=== PATIENT | female | born 1995 | race Caucasian/White ===

== ENCOUNTER 2021-03-08 18:24 | Emergency (ER) | payer OTHER, SELFPAY ==
[2021-03-08 18:39] VITALS: BP 105/64; PULSE 64; RESP 16; TEMP 36.6; O2SAT 100
--- NOTE | 2021-03-08 18:43 | ED.ANIMALBIT ---
HPI - Animal Bite General Chief Complaint: Animal Bite Stated Complaint: Bit by a cat Time Seen by Provider: 03/08/21 18:44 Source: patient History of Present Illness HPI narrative: left inner knee bit by cat at work. puncture wound and bruising to left inner knee . slight edemetous, no drainage no streaking. incident occurred early this am. patient flushed bite at work and is up to date on tdap patient is 16 weeks but has no related problems. MD complaint: animal bite Related Data Home Medications Medication Instructions Recorded Confirmed citalopram 20 mg PO DAILY 03/08/21 03/08/21 citalopram 40 mg PO DAILY 03/08/21 03/08/21 levothyroxine 25 mcg PO DAILY 03/08/21 03/08/21 Allergies Allergy/AdvReac Type Severity Reaction Status Date / Time No Known Allergies Allergy Unverified 11/24/14 14:53 Review of Systems Review of Systems: CONSTITUTIONAL: Denies fever, chills, or sweats. EYES: Denies visual changes, redness, or discharge. ENT: Denies rhinorrhea, congestion, sore throat, or otalgia. CARDIOVASCULAR: Denies chest pain, palpitations, or edema. RESPIRATORY: Denies cough or dyspnea. GASTROINTESTINAL: Denies abdominal pain, nausea, vomiting, or diarrhea. GENITOURINARY: Denies dysuria or hematuria. SKIN: Denies rash or itching. MUSCULOSKELETAL: Denies back pain, joint pain, or myalgia. NEUROLOGIC: Denies headache, numbness, or weakness. PSYCHIATRIC: Denies anxiety or depression. PMFSH Comments At time of signature, agree with nursing past medical, surgical, social and family history. There is no relevant family history pertinent to the presenting complaint Exam Narrative: GENERAL: Well-appearing, well-nourished, and in no acute distress. HEAD: Normocephalic, atraumatic. EYES: PERRLA and EOMI. ENT: Nares clear, no rhinorrhea or epistaxis. Mucous membranes moist. NECK: Supple. CHEST: Clear to auscultation. No respiratory distress. HEART: Regular rate and rhythm. No murmur heard. Normal peripheral pulses. ABDOMEN: Soft, nontender, nondistended, normal active bowel sounds. EXTREMITIES: Normal range of motion. No edema. SKIN: Warm, dry, no rash. NEURO: No focal deficits. Alert and oriented x3. [place] Coma Scale Eye Opening: Spontaneous 4 [place] Coma Scale Motor: Obeys Commands 6 [place] Coma Scale Verbal: Oriented 5 [place] Coma Scale Total 15 Skin: Wounds: wounds noted (puncture wound to left inner knee) Course Vital Signs Vital signs: Vital Signs Temperature 36.6 C 03/08/21 18:39 Pulse Rate 64 03/08/21 18:39 Respiratory Rate 16 03/08/21 18:39 Blood Pressure 105/64 03/08/21 18:39 Pulse Oximetry 100 03/08/21 18:39 Temperature 36.6 C 03/08/21 18:39 Pulse Rate 64 03/08/21 18:39 Respiratory Rate 16 03/08/21 18:39 Blood Pressure 105/64 03/08/21 18:39 Pulse Oximetry 100 03/08/21 18:39 Discharge Plan Discharge Clinical Impression: Bite by animal, Cat bite Patient Disposition: Home, Self-Care Condition: Stable Instructions: Antibiotic Form, Animal Bite (ED) Additional Instructions: Take Augmentin with food as prescribed until gone Wash puncture wounds daily with antibacterial soap warm soapy water and apply bacitracin or Neosporin Monitor for any increased in redness streaking's or purulent drainage Follow-up with primary care provider as needed If any new or worsening symptoms go to ER immediately for further evaluation treatment Prescriptions: No Action citalopram 20 mg tablet 20 mg PO DAILY RF: 0 citalopram 40 mg tablet 40 mg PO DAILY RF: 0 levothyroxine 25 mcg tablet 25 mcg PO DAILY RF: 0 Follow-up/Referrals: Maksim,RADHA Narvaez [Primary Care Provider] -
== END 2021-03-08 18:56 | disposition home or self-care (01) ==
PROVIDERS: Emergency Provider Nurse Practitioner Family; PCP Nurse Practitioner Family
DX: S81.032A Puncture wound without foreign body, left knee, initial encounter (principal); W55.01XA Bitten by cat, initial encounter
CPT/HCPCS: 99202; G0463

== ENCOUNTER 2021-03-10 08:04 | Emergency (ER) | payer OTHER, SELFPAY ==
[2021-03-10 08:15] VITALS: BP 115/65; PULSE 63; RESP 16; TEMP 36.6; O2SAT 100
--- NOTE | 2021-03-10 08:23 | ED.ANIMALBIT ---
HPI - Animal Bite General Chief Complaint: Animal Bite Stated Complaint: Cat Bite Time Seen by Provider: 03/10/21 08:42 Source: patient and RN notes reviewed Mode of arrival: ambulatory Limitations: no limitations History of Present Illness HPI narrative: 25-year-old female presents with concern for cat bite that is not improving with antibiotics. Reports she was seen in this clinic on the , was given a prescription for amoxicillin. She reports she has taken 4 doses of the amoxicillin with no improvement, reports the redness is getting larger. She reports the amoxicillin has given her diarrhea and made her nauseous. Reports she has been taking it with food and had a yogurt. She denies any fever, body aches, general malaise. Reports the wound is tender. Denies drainage from the wound. MD complaint: animal bite Related Data Home Medications Medication Instructions Recorded Confirmed citalopram 20 mg PO DAILY 03/08/21 03/10/21 citalopram 40 mg PO DAILY 03/08/21 03/10/21 levothyroxine 25 mcg PO DAILY 03/08/21 03/10/21 Allergies Allergy/AdvReac Type Severity Reaction Status Date / Time No Known Allergies Allergy Unverified 11/24/14 14:53 Review of Systems Review of Systems: CONSTITUTIONAL: Denies malaise, chills, sweats, or fever. CARDIOVASCULAR: Denies chest pain, palpitations, or edema. RESPIRATORY: Denies cough or dyspnea. GASTROINTESTINAL: Denies abdominal pain, vomiting. Reports diarrhea nausea SKIN: Denies rash or itching. MUSCULOSKELETAL: Denies back pain, joint pain, or myalgia. NEUROLOGIC: Denies numbness, weakness, or headache. PSYCHIATRIC: Denies anxiety or depression. All systems reviewed & are unremarkable except as noted in HPI and below PMFSH Comments At time of signature, agree with nursing past medical, surgical, social and family history. There is no relevant family history pertinent to the presenting complaint Exam Narrative: GENERAL: Well-appearing, well-nourished, and in no acute distress. HEAD: Normocephalic, atraumatic. EYES: PERRLA, conjunctivae clear ENT: Mucous membranes moist. NECK: Supple. No lymphadenopathy CHEST: Clear to auscultation. No respiratory distress. HEART: Regular rate and rhythm. SKIN: Warm, dry. 8 cm diameter raised area of erythema, induration, warmth with scabbed puncture wounds. NEURO: Alert and oriented x3. PSYCH: Normal mood and affect Course Course Emergency Course: Patient is aware of diagnosis, understands and agrees to treatment plan. Anticipatory guidance given. Patient agrees to follow-up as directed and is aware of reasons to seek care at the emergency department. Portions of this record may have been created with voice recognition software Vital Signs Vital signs: Vital Signs Temperature 97.8 F 03/10/21 08:15 Pulse Rate 63 03/10/21 08:15 Respiratory Rate 16 03/10/21 08:15 Blood Pressure 115/65 03/10/21 08:15 Pulse Oximetry 100 03/10/21 08:15 Temperature 97.8 F 03/10/21 08:15 Pulse Rate 63 03/10/21 08:15 Respiratory Rate 16 03/10/21 08:15 Blood Pressure 115/65 03/10/21 08:15 Pulse Oximetry 100 03/10/21 08:15 Reviewed. MDM - Animal Bite MDM Narrative Medical decision making narrative: Patient arvin to the original redness of the wound, redness has spread outside the original markings. Exam findings show no acute concerns or changes; patient is non-toxic appearing and is in no distress. Patient is appropriate for outpatient treatment and follow-up. Differential Diagnosis Differential diagnosis: Likely cat bite and other (Cellulitis, abscess) Critical Care Time Critical Care Time Critical Care Time: No Discharge Plan Discharge Clinical Impression: Cat bite Qualifiers: Encounter type: initial encounter Qualified Code(s): W55.01XA - Bitten by cat, initial encounter Patient Disposition: Home, Self-Care Condition: Stable Instructions: Animal Bite (ED) Additional Instructions: Please fol
== END 2021-03-10 08:47 | disposition home or self-care (01) ==
PROVIDERS: Emergency Provider Nurse Practitioner; PCP Nurse Practitioner Family
DX: T14.8XXA Other injury of unspecified body region, initial encounter (principal); W55.01XA Bitten by cat, initial encounter
CPT/HCPCS: 99213; G0463

== ENCOUNTER 2021-07-01 19:25 | Observation (INO) | payer OTHER, MEDICAID, SELFPAY ==
[2021-07-01] VITALS (15 sets, daily range): BP systolic 112–116; BP diastolic 61–69; PULSE 63–96; TEMP 36.5; O2SAT 99–100; BMI 37.2
--- NOTE | 2021-07-01 19:47 | OBADM ---
This patient, Lynne Skelton, admitted to the OB room OB Post 116 for observation. Patient/family oriented to hospital policies and general routines including ID bracelet, bed and alarms, visiting hours, pain management, procedures, bathroom and other care routines, personal items, smoking policy, room service/diet, and visiting hours. Patient/Family are encouraged to report perceived risks to care and to ask questions if they do not understand what they are told or what they should do.
[2021-07-01 20:21] LABS: Add Urine Microscopic? NO; Appearance Urine Clear (Clear); Bilirubin Urine Negative (Negative); Blood Urine Negative (Negative); Color Urine Yellow (Yellow); Glucose Urine UA Negative (Negative); Ketones Urine Negative (Negative); Leukocyte Esterase Ur Negative LEU/UL (Negative); Nitrate Urine Negative (Negative); Protein Urine Negative (Negative); Specific Grav Ur 1.021 (1.001-1.035); Urobilinogen Urine Negative mg/dL (<2.0)
[2021-07-01] MEDS: TERBUTALINE SULFATE 1 MG/ML VIAL 0.25 MG SUB-Q (21:31)
--- NOTE | 2021-07-26 22:18 | PM.OBTRLD ---
OB - Triage/Final Diagnosis Visit Information Comments/Additional reasons for admission: I have assessed the risk for this patient, Lynne Skelton, and determined that she would benefit from observation care. Evaluation Laboratory results: Laboratory Tests 07/01/21 20:05 Urine Color Yellow Urine Appearance Clear Urine pH 7.0 Ur Specific [place] 1.021 Urine Protein Negative Urine Glucose (UA) Negative Urine Ketones Negative Ur Blood (Man) Negative Urine Nitrate Negative Urine Bilirubin Negative Urine Urobilinogen Negative Leukocyte Esterase Rfl Negative Final Diagnosis (1) Pelvic pain: Code(s): R10.2 - Pelvic and perineal pain Status: Acute
== END 2021-07-01 22:26 | disposition home or self-care (01) ==
PROVIDERS: Admitting Provider Obstetrics & Gynecology; PCP Nurse Practitioner Family; Visit Provider Obstetrics & Gynecology
DX: O26.893 Other specified pregnancy related conditions, third trimester (principal); R10.2 Pelvic and perineal pain; Z3A.32 32 weeks gestation of pregnancy
CPT/HCPCS: 81003; 96372; G0378; G0379; J3105

== ENCOUNTER 2021-07-23 22:21 | Inpatient (IN) | payer OTHER, MEDICAID, SELFPAY ==
[2021-07-23 22:33] VITALS: BP 139/76; PULSE 83
[2021-07-23 22:46] VITALS: BP 129/78; PULSE 82
[2021-07-23 23:01] VITALS: BP 130/78; PULSE 78
[2021-07-23] MEDS: AMPICILLIN 2 GM/NS 100 ML 2 GM/100 ML BAG IVPB (23:01)
[2021-07-23] MEDS: BETAMETHASONE SOD PHOS/ACETATE 30 MG/5 ML VIAL 12 MG IM (23:01)
[2021-07-23] MEDS: LACTATED RINGERS 1,000 ML 125 ML IV CONT (23:02)
[2021-07-23 23:04] LABS: Basophils Percent Auto 0.2 % (0.2-1.2); Eosinophils Absolute Auto 0.2 K/mm3 (0-0.3); Eosinophils Percent Auto 1.2 % (0-4.4); Hematocrit 33.4 % (37.0-47.0); Hemoglobin 11.4 g/dL (12.0-15.0); Immature Granulocyte Absolute 0.11 K/mm3 (0.00-0.031); Immature Granulocyte Percent A 0.8 % (0-0.5); Lymphocytes Absolute Auto 2.28 K/mm3 (0.9-3.2); Lymphocytes Percent Auto 16.1 % (18.3-44.2); Mean Corpuscular HGB Conc 34.1 g/dl (32-36); Mean Corpuscular Hemoglobin 33.6 pg (26-34); Mean Corpuscular Volume 98.5 fl (80-100); Mean Platelet Volume 10.2 fl (7.4-10.4); Monocytes Percent Auto 7.1 % (2.6-8.5); Neutrophils Absolute Auto 10.6 K/mm3 (1.3-6.7); Neutrophils Percent Auto 74.6 % (45.5-73.1); Platelet Count Result 259 k/mm3 (150-375); Red Blood Count 3.39 M/mm3 (4.2-5.4); Red Cell Distribution Width 12.8 % (11.5-14.5); White Blood Count 14.2 K/mm3 (4.5-10.0)
[2021-07-23 23:05] VITALS: BMI 38.2
--- NOTE | 2021-07-23 23:05 | LDADM ---
This patient, Lynne Skelton, was admitted to Labor/Delivery/Recovery 104 on 07/23/21 at 22:21. Plans for labor, pain management and were discussed with patient. Patient/family oriented to hospital policies and general routines including ID bracelet, bed and alarms, visiting hours, pain management, procedures, bathroom and other care routines, personal items, smoking policy, room service/diet and guest tray routines, security routines, and visiting hours. Patient/Family are encouraged to report perceived risks to care and to ask questions if they do not understand what they are told or what they should do. See OBIX for further documentation.
[2021-07-23 23:16] VITALS: BP 123/73; PULSE 73
[2021-07-23 23:31] VITALS: BP 125/74; PULSE 75
[2021-07-24] VITALS (147 sets, daily range): BP systolic 88–146; BP diastolic 41–129; PULSE 56–180; RESP 16–18; TEMP 36.4–37.2; O2SAT 78–100
[2021-07-24] MEDS: AMPICILLIN 1 GM/NS 50 ML 1 GM/50 ML BAG IVPB ×5 (03:14→19:29)
--- NOTE | 2021-07-24 03:37 | WPDANESEPP ---
Anes - Eval Pre Procedure Procedure: Labor epidural Date/Time: 07/24/21 03:37 Surgeon: Inna Preop Diagnosis: Abd pain with contractions Pre Op Diagnosis: leaking Patient Data Age: 25 Gender: F Height: 1.6 m Weight: 98 kg Last Vital Signs Temp 97.9 F 07/24/21 02:30 Pulse 72 07/24/21 03:12 Resp 18 07/24/21 02:30 BP 116/72 07/24/21 03:12 Allergies Allergy/AdvReac Type Severity Reaction Status Date / Time No Known Allergies Allergy Unverified 11/24/14 14:53 Home Medications Medication Instructions Recorded Confirmed Type citalopram 10 mg PO DAILY 03/08/21 07/24/21 History cetirizine [Zyrtec] 10 mg DAILY 07/24/21 07/24/21 History ferrous sulfate [Slow Fe] 142 mg PO BID 07/24/21 07/24/21 History pantoprazole 40 mg PO DAILY PRN 07/24/21 07/24/21 History [id number] fum-folic ac-om3 1 pkg PO DAILY 07/24/21 07/24/21 History [Daily ] Laboratory Tests 07/23/21 07/23/21 07/23/21 22:59 22:59 22:59 WBC 14.2 K/mm3 H K/mm3 (4.5-10.0) RBC 3.39 M/mm3 L M/mm3 (4.2-5.4) Hgb 11.4 g/dL L g/dL (12.0-15.0) Hct 33.4 % L % (37.0-47.0) MCV 98.5 fl fl (80-100) MCH 33.6 pg pg (26-34) MCHC 34.1 g/dl g/dl (32-36) RDW 12.8 % % (11.5-14.5) Plt Count 259 k/mm3 k/mm3 (150-375) MPV 10.2 fl fl (7.4-10.4) Immature Gran % (Auto) 0.8 % H % (0-0.5) Neut % (Auto) 74.6 % H % (45.5-73.1) Lymph % (Auto) 16.1 % L % (18.3-44.2) Faulk % (Auto) 7.1 % % (2.6-8.5) Eos % (Auto) 1.2 % % (0-4.4) Baso % (Auto) 0.2 % % (0.2-1.2) Lymph # (Auto) 2.28 K/mm3 K/mm3 (0.9-3.2) Faulk # (Auto) 1.0 K/mm3 H K/mm3 (0.1-0.6) Eos # (Auto) 0.2 K/mm3 K/mm3 (0-0.3) Baso # (Auto) 0.0 K/mm3 K/mm3 (0.0-0.1) Abs Immat Gran (auto) 0.11 K/mm3 H K/mm3 (0.00-0.031) Absolute Neuts (auto) 10.6 K/mm3 H K/mm3 (1.3-6.7) Absolute Nucleated RBC 0.0 K/mm3 K/mm3 (0.0-0.012) Nucleated RBC % 0.0 % % (0.0-0.2) RPR Pending Blood Type A Positive Antibody Screen Negative Patient hx anesthesia problems: none Family hx anesthesia problems: none Results Review: All pre-operative results and documents have been reviewed as part of the pre-operative evaluation. [facility] Past Medical History Medical History Anxiety Morbid obesity and not yet delivered Prolonged rupture of membranes Social History Social History Years smoked: 8 Smoking status: Current every day smoker Tobacco type: e-cigarettes/vaping Second hand tobacco smoke exposure: Yes Substance use: current Spiritual care concerns: No Exam Day of Procedure 07/24/21 03:37 Patient weight: morbidly obese Heart: regular rate and rhythm Airway: Mallampati scale class II Neurological: alert and oriented
--- NOTE | 2021-07-24 07:53 | PM.IMHP ---
H&P: HPI History of Present Illness Date/Time: 07/24/21 07:53 Chief Complaint: induction of labor Review of Systems Review of Systems: All systems reviewed & are unremarkable except as noted in HPI and below PMFSH Past Medical History Medical History Anxiety Morbid obesity and not yet delivered Prolonged rupture of membranes Social History Social History Years smoked: 8 Smoking status: Current every day smoker Tobacco type: e-cigarettes/vaping Second hand tobacco smoke exposure: Yes Substance use: current Spiritual care concerns: No Meds Home Medications and Allergies Home Medications Medication Instructions Recorded Confirmed Type citalopram 10 mg PO DAILY 03/08/21 07/24/21 History cetirizine [Zyrtec] 10 mg DAILY 07/24/21 07/24/21 History ferrous sulfate [Slow Fe] 142 mg PO BID 07/24/21 07/24/21 History pantoprazole 40 mg PO DAILY PRN 07/24/21 07/24/21 History -cpmg fum-folic ac-om3 1 pkg PO DAILY 07/24/21 07/24/21 History [Daily ] Allergies Allergy/AdvReac Type Severity Reaction Status Date / Time No Known Allergies Allergy Unverified 11/24/14 14:53 Vital Signs Vital Signs - 24 hr 07/23/21 22:33 07/23/21 22:46 07/23/21 23:01 Temperature Pulse Rate 83 82 78 Respiratory Rate Blood Pressure 139/76 129/78 130/78 07/23/21 23:16 07/23/21 23:31 07/24/21 00:30 Temperature 98.4 F Pulse Rate 73 75 Respiratory Rate Blood Pressure 123/73 125/74 07/24/21 00:46 07/24/21 02:30 07/24/21 03:12 Temperature 97.9 F Pulse Rate 67 72 Respiratory Rate 18 Blood Pressure 108/53 L 116/72 07/24/21 04:30 07/24/21 06:10 Temperature 97.6 F 98.9 F Pulse Rate Respiratory Rate 16 Blood Pressure Exam Const: General: no acute distress Resp: Effort & Inspection: normal respiratory effort Auscultation: clear to auscultation bilaterally Cardio: Rate: regular rate Rhythm: regular rhythm GI: GI Palp: Yes Soft to palpation Extrem: General: normal to inspection H&P: Results Labs Labs: Short CBC 07/23/21 Range/Units 22:59 WBC 14.2 H (4.5-10.0) K/mm3 Hgb 11.4 L (12.0-15.0) g/dL Hct 33.4 L (37.0-47.0) % Plt Count 259 (150-375) k/mm3 Assessment and Plan Additional Plan Here for induction of labor- GBS FHT category 1
--- NOTE | 2021-07-24 08:07 | PM.IMHP ---
H&P: HPI History of Present Illness Date/Time: 07/24/21 08:07 Chief Complaint: SROM Narrative: Lynne is a 25yo G1 at 35.5 who presented last night with slow leak SROM since the 3rd. Antibiotics started. Given first dose of BMTZ. Irregular contractions. Review of Systems Review of Systems: All systems reviewed & are unremarkable except as noted in HPI and below PMFSH Past Medical History Medical History Anxiety Morbid obesity and not yet delivered Prolonged rupture of membranes Social History Social History Years smoked: 8 Smoking status: Current every day smoker Tobacco type: e-cigarettes/vaping Second hand tobacco smoke exposure: Yes Substance use: current Spiritual care concerns: No Meds Home Medications and Allergies Home Medications Medication Instructions Recorded Confirmed Type citalopram 10 mg PO DAILY 03/08/21 07/24/21 History cetirizine [Zyrtec] 10 mg DAILY 07/24/21 07/24/21 History ferrous sulfate [Slow Fe] 142 mg PO BID 07/24/21 07/24/21 History pantoprazole 40 mg PO DAILY PRN 07/24/21 07/24/21 History [id number] fum-folic ac-om3 1 pkg PO DAILY 07/24/21 07/24/21 History [Daily ] Allergies Allergy/AdvReac Type Severity Reaction Status Date / Time No Known Allergies Allergy Unverified 11/24/14 14:53 Vital Signs Vital Signs - 24 hr 07/23/21 22:33 07/23/21 22:46 07/23/21 23:01 Temperature Pulse Rate 83 82 78 Respiratory Rate Blood Pressure 139/76 129/78 130/78 07/23/21 23:16 07/23/21 23:31 07/24/21 00:30 Temperature 98.4 F Pulse Rate 73 75 Respiratory Rate Blood Pressure 123/73 125/74 07/24/21 00:46 07/24/21 02:30 07/24/21 03:12 Temperature 97.9 F Pulse Rate 67 72 Respiratory Rate 18 Blood Pressure 108/53 L 116/72 07/24/21 04:30 07/24/21 06:10 Temperature 97.6 F 98.9 F Pulse Rate Respiratory Rate 16 Blood Pressure Exam Const: General: no acute distress Resp: Effort & Inspection: normal respiratory effort Auscultation: clear to auscultation bilaterally Cardio: Rate: regular rate Rhythm: regular rhythm GI: GI Palp: Yes Soft to palpation Extrem: General: normal to inspection H&P: Results Labs Labs: Short CBC 07/23/21 Range/Units 22:59 WBC 14.2 H (4.5-10.0) K/mm3 Hgb 11.4 L (12.0-15.0) g/dL Hct 33.4 L (37.0-47.0) % Plt Count 259 (150-375) k/mm3 Assessment and Plan Additional Plan Here for PPROM GBS unknown, antibiotics running will start pitocin second celone at 12 hours (1100) FHT category 1
[2021-07-24] MEDS: OXYTOCIN 30 UNITS/NS 500 ML 30 UNITS/500 ML BAG 6 UNITS IV CONT (08:35)
[2021-07-24 08:52] LABS: Rapid Plasma Reagin Non-Reactive (NonReactive)
[2021-07-24] MEDS: BETAMETHASONE SOD PHOS/ACETATE 30 MG/5 ML VIAL 12 MG IM (10:58)
[2021-07-24] MEDS: LACTATED RINGERS 1,000 ML 125 ML IV CONT (14:27)
--- NOTE | 2021-07-24 21:03 | PM.OBPRVD ---
OB - Delivery Note Procedure Delivery date: 07/24/21 Procedure: Events: Premature Rupture of Membranes Induction method: Per Pitocin Protocol Delivery monitor: External FHT and External Uterine Route of delivery: Laceration Description: Perineal - 2nd Degree Delivery repair: vicryl Quantitative Blood Loss (ml): 250 Anesthesia type: Epidural Disposition: Floor Narrative: With adequate expulsive efforts by the mother, the baby's head was delivered OA. The baby's anterior shoulder was delivered under the pubic symphysis without difficulty. The posterior shoulder and the rest of the baby delivered without difficulty. The was placed on the mothers chest and suctioned and stimulated. The cord was clamped and cut after 30 seconds. Mother and baby both stable. Baby Date of : 07/24/21 Time of : 20:43 Weeks of gestation at delivery: 35 gender: Female Weight (pounds): 5 Weight (ounces): 4 presentation: vertex Placenta delivery description: Spontaneous Cord Vessel Description: 3 Vessels, Nuchal Cord and Delayed Cord Clamping score one minute: 8 score five minutes: 9
[2021-07-24] MEDS: OXYTOCIN 30 UNITS/NS 500 ML 30 UNITS/500 ML BAG 125 UNITS IV CONT (21:14)
[2021-07-25 00:20] VITALS: BP 128/52; PULSE 98; RESP 18; TEMP 36.7
--- NOTE | 2021-07-25 00:21 | OBPPTRN ---
Patient transferred to post room # 287 via ( wheelchair ). Support person present. Oriented to unit, room, information board, rooming in, admission packet and security measures. Patient verbalizes understanding.
[2021-07-25 03:30] VITALS: BP 126/50; PULSE 90; RESP 16; TEMP 36.8
--- NOTE | 2021-07-25 07:33 | WPDANLDNPN2 ---
Anes-Prog Note L&D-Neuraxial Date/Time: 07/25/21 07:33 Patient feedback: Patient satisfied with post-operative pain management.
[2021-07-25] MEDS: WITCH HAZEL 40 PADS 1 PAD TOPICAL (07:58)
[2021-07-25] MEDS: DOCUSATE SODIUM 100 MG CAPSULE PO ×2 (07:58→16:13)
[2021-07-25] MEDS: MULTIVIT/MIN/PREN/FOL AC/IRON TABLET 1 TAB PO (07:58)
[2021-07-25] MEDS: BENZOCAINE 20% AER SPR (*SP) 56 GM CAN 1 SPRAY TOPICAL (07:58)
[2021-07-25] MEDS: IBUPROFEN 600 MG TABLET PO ×2 (07:59→13:17)
[2021-07-25 08:00] VITALS: BP 118/79; PULSE 72; RESP 18; TEMP 36.3
--- NOTE | 2021-07-25 08:01 | PM.OBPNVD ---
OB - PN: Subj Subjective Date/time seen: 07/25/21 08:01 Patient comments: no complaints and pain well controlled baby status: doing well and nursing well [place] feeding status: exclusively breast feeding OB - PN: Obj Data Labs CBC & Chem 7: 07/23/21 22:59 Labs: Laboratory Results - last 24 hr 07/23/21 22:59 RPR Non-reactive OB - PN A/P Assessment and Plan (1) delivery: Code(s): O60.10X0 - labor with delivery, unspecified trimester, not applicable or unspecified Status: Acute Plan day: 1 Plan: routine care Time Spent With Patient Time: Total time spent is greater than 50% in coordination of care (as documented) at patient's floor/unit and/or counseling patient: Time with patient: less than 15 minutes Exam Narrative: NAD abdomen soft, nontender, fundus firm below the umbilicus Extremities nontender, 1+ edema
--- NOTE | 2021-07-25 09:09 | PC.NURSE ---
0740 -Introductions were made and consulted with patient to assess needs related to . Mother led conversation with her experience with feeding baby so far and her desire to exclusively breastfeed. Infant is in the nursery at this time. Discussed with mom to place skin to skin on her chest when she comes back to the room and call for assistance with latching. Resources used to facilitate learning were used from the visual handout for latch/ tool/mom and baby guide. Mother voiced understanding responding to feeding cues, may need to stimulating infant approximately 2-3 hours from the start of the last feeding, calling for assistance to work on optimal latching, if the does not latch or there discomfort . Reported to primary RN.
--- NOTE | 2021-07-25 10:00 | PC.NURSE ---
Nipple shield provided to mother due to ineffective feeding and infant size. Reviewed good handwashing, cleaning the nipple shield and application. Discussed with mom the nipple shield precautions and possible complications. Mom and baby guide referred to as a resource for using a nipple shield, out-patient services and when to call a provider. Mom voiced understanding of the importance of hand expression, nipple stimulation and initiating a pumping schedule if continues to nurse with the shield.
[2021-07-25 11:55] VITALS: BP 104/88; PULSE 70; RESP 18; TEMP 36.5; O2SAT 100
--- NOTE | 2021-07-25 13:11 | PC.NURSE ---
1235 - Consulted with patient to assess needs related to . Mother led conversation with her experience with feeding baby so far. Mother works well with her . Reviewed good handwashing when working with , breast, nipples and how to protect the nipples with a deep latch. Encouraged understanding the benefits of skin to skin, responding to feeding cues, frequencies of feeding 8-12 times in 24 hours (approximately 2-3 hours), duration of feedings, milk production, intake/output feeding sheet and signs of adequate intake. Discussed stimulating with skin to skin, hand expressing colostrum, touch and talking to infant to encourage eating at the breast. Reviewed positioning and alignment, supporting breast, off-centered (asymmetrical latch) and leading with the chin with big open wide gape. latched optimally to the right breast effective per mother with nipple shield provided by primary RN. Assisted mother with to the left breast, with nipple shield and stated she had no pain. was able to maintain latch without discomfort to mother. Nipple care, comfort and healing with warm, wet washcloth to rinse breast and leave to air-dry. Resources used to facilitate learning were used from the visual handout/ tool/mom and baby guide. Mother voiced understanding responding to feeding cues, may need to stimulating approximately 2-3 hours from the start of the last feeding, calling for assistance if the infant does not latch or there discomfort . Reported to primary RN.
--- NOTE | 2021-07-25 14:00 | PC.NURSE ---
Breast pump provided due to ineffective feeding and use of nipple shield. Reviewed information regarding pump care, hand washing, nipple care and pumping 8 times in 24 hours (1-2 at night) for 10-15 minutes. Discussed she may want to pump after feedings or between feedings. If after feeding, rest for 5-10 minutes. Get something to eat/drink, use the restroom, then pump. Collection and storage of breast milk per mom and baby guide. Encouraged mom to place infant skin to skin, breast massage and use hand expression and/or a breast pump in a relaxing atmosphere. Pt. verbalized understanding. Denver Sylvester RN., [employer], aware that pt. will be pumping and using nipple shield.
[2021-07-25 16:00] VITALS: BP 106/63; PULSE 85; RESP 14; TEMP 36.9
[2021-07-25 20:10] VITALS: BP 121/58; PULSE 78; RESP 18; TEMP 36.8; O2SAT 98
[2021-07-26] MEDS: IBUPROFEN 600 MG TABLET PO ×3 (01:24→14:35)
[2021-07-26 05:26] LABS: Hematocrit 26.5 % (37.0-47.0); Hemoglobin 8.7 g/dL (12.0-15.0)
[2021-07-26] MEDS: BENZOCAINE 20% AER SPR (*SP) 56 GM CAN 1 SPRAY TOPICAL (07:32)
[2021-07-26] MEDS: WITCH HAZEL 40 PADS 1 PAD TOPICAL (07:32)
[2021-07-26] MEDS: DOCUSATE SODIUM 100 MG CAPSULE PO ×2 (07:32→16:43)
[2021-07-26] MEDS: POLYSACCHARIDE IRON COMPLEX 150 MG CAPSULE PO ×2 (07:32→16:43)
[2021-07-26] MEDS: MULTIVIT/MIN/PREN/FOL AC/IRON TABLET 1 TAB PO (07:33)
--- NOTE | 2021-07-26 07:40 | PM.OBPNVD ---
OB - PN: Subj Subjective Date/time seen: 07/26/21 07:40 Patient comments: no complaints baby status: doing well [place] feeding status: exclusively breast feeding Narrative: Doing very well. Ready for DC home! No concerns. OB - PN: Obj Data Labs CBC & Chem 7: 07/26/21 04:40 Labs: Laboratory Results - last 24 hr 07/26/21 04:40 Hgb 8.7 L Hct 26.5 L OB - PN A/P Assessment and Plan (1) delivery: Code(s): O60.10X0 - labor with delivery, unspecified trimester, not applicable or unspecified Status: Acute Plan day: 2 Plan: routine care and discharge home Time Spent With Patient Time: Total time spent is greater than 50% in coordination of care (as documented) at patient's floor/unit and/or counseling patient: Time with patient: less than 15 minutes Exam Narrative: NAD abdomen soft, nontender, fundus firm below the umbilicus Extremities nontender, 1+ edema
--- NOTE | 2021-07-26 07:46 | PM.OBDSVD ---
DS: Admitting Diagnosis Discharge Date 07/26/21 Admitting Diagnosis PPROM at 35.5 DS: Discharge Diagnosis Discharge Diagnosis (1) delivery: Code(s): O60.10X0 - labor with delivery, unspecified trimester, not applicable or unspecified Status: Acute OB - DS: Summary Hospital Course Hospital Course: Lynne was admitted for PPROM at 35.5. She received celestone for lung maturity and was induced with pitocin. She had an uncomplicate vaginal delivery and post course. OB Procedures : Ultrasound OB Procedures Intrapartum: Spontaneous Vag Delivery OB Procedures: : None Peripartum Data Delivery Method: Natural Vaginal complications: none Status at Discharge Functional status at discharge: independent ambulation Time Spent with Patient Time attestation: Total time spent providing and/or coordinating discharge services: Exam Narrative: NAD abdomen soft, appropriately tender Ext non tender, 1+ edema DS: Data Data Completed and Pending Labs on day of discharge: Labs from last 24 hours 07/26/21 04:40 Hgb 8.7 L Hct 26.5 L Discharge Plan Discharge Attending physician on discharge: Laurita Keith Discharging Clinician: Laurita Keith Anticipated Discharge Date/Time: 07/26/21 07:43 Patient Disposition: Home, Self-Care Activity: may shower and pelvic rest Diet: regular Discharge Instructions: ibuprofen 600mg every 6 hours as needed Patient Instructions: Antibiotic Form Stand Alone Forms: General Discharge Information Follow-up/Referrals: Laurita Keith MD [Physician] - 4 Weeks Discharge Medications: Continued citalopram 20 mg tablet 10 mg PO DAILY RF: 0 pantoprazole 40 mg tablet,delayed release (DR/EC) 40 mg PO DAILY PRN (Reason: Acid Reflux) RF: 0 Slow Fe 142 mg (45 mg iron) Tablet Extended Release 142 mg PO BID RF: 0 Daily [phone] mg-mcg-mg Combo Pack 1 pkg PO DAILY RF: 0 Discontinued Zyrtec 10 mg Capsule 10 mg DAILY RF: 0 Date of admission: 07/23/21 22:21 Primary Care Provider: MaksimCitlaly Admitting Provider: Laurita Keith Attending physician on admission: Laurita Keith Condition: Stable
[2021-07-26 08:00] VITALS: BP 125/77; PULSE 77; RESP 18; TEMP 36.8
--- NOTE | 2021-07-26 12:09 | PC.NURSE ---
[id number] - Consulted with patient to assess needs related to . Mother led conversation with her experience with feeding baby so far. Mother works well with her . She uses the nipple shield to assist latching , then removed the nipple shield and latches infant effectively on the right breast using the cross cradle position. Reviewed good handwashing when working with infant, breast, nipples to prevent infection and how to protect the nipples with a deep latch. Encouraged understanding the benefits of skin to skin, responding to feeding cues, frequencies of feeding 8-12 times in 24 hours (approximately 2-3 hours), duration of feedings, milk production, intake/output feeding sheet and signs of adequate intake. Discussed stimulating with skin to skin, hand expressing colostrum, touch and talking to infant to encourage eating at the breast. Reviewed positioning and alignment, supporting breast, off-centered (asymmetrical latch) and leading with the chin with big open wide gape. Education given to mother of how to visualize suck/swallow ratios and drinking at the breast. was able to maintain latch without discomfort to mother. Nipple care, comfort and healing with warm, wet washcloth to rinse breast and leave to air-dry. Breast pump provided yesterday due to ineffective . Reviewed information regarding pump care, hand washing, nipple care and pumping 8 times in 24 hours (1-2 at night) for 10-15 minutes. Discussed she may want to pump after feedings or between feedings. Collection and storage of breastmilk per mom and baby guide. Encouraged mom to place skin to skin, breast massage and use hand expression and/or a breast pump in a relaxing atmosphere. Mother has pumped colostrum to give to her after . Infant has had appropriate feedings in the past 24 hours and meets the outcomes for weight, output and jaundice. Mother states she feels confident to continue effectively /pumping/supplementing with human milk to her infant at home. Reviewed production of human milk, transition of milk, signs of adequate intake and engorgement prevention/relief and when to call the care provider using the mom and baby guide. Reviewed medications mother is taking with information provided by [facility], community resources and outpatient services as listed in the mom and baby guide/[facility] website. Reinforced watching for feeding cues for responsive feeding and how to stimulate to initiate feeding three hours from the start of the last feeding. Mother voiced understanding of information shared. Reported to primary RN.
[2021-07-26] MEDS: LANOLIN (LANSINOH) 7.5 GM CREAM 1 APPLIC TOPICAL (16:43)
[2021-07-26] MEDS: MEASLES,MUMPS,RUBELLA VACCINE 0.5 ML VIAL SUB-Q (16:44)
[2021-07-27 11:44] VITALS: BP 116/70; PULSE 82; RESP 18; TEMP 36.9; O2SAT 100
== END 2021-07-26 16:55 | disposition home or self-care (01) | DRG 807 ==
LOC: ANHOBOP 22:21 → ANHLDR 22:21 → ANHOB2 07-24 23:51
PROVIDERS: Admitting Provider Obstetrics & Gynecology; PCP Nurse Practitioner Family; Visit Provider Obstetrics & Gynecology
DX: O42.913 Preterm premature rupture of membranes, unspecified as to length of time between rupture and onset of labor, third trimester (principal); Z37.0 Single live birth; Z3A.35 35 weeks gestation of pregnancy; P07.38 Preterm newborn, gestational age 35 completed weeks; O70.1 Second degree perineal laceration during delivery; O99.334 Smoking (tobacco) complicating childbirth; F17.290 Nicotine dependence, other tobacco product, uncomplicated; O69.81X0 Labor and delivery complicated by cord around neck, without compression, not applicable or unspecified; O99.214 Obesity complicating childbirth; E66.01 Morbid (severe) obesity due to excess calories
CPT/HCPCS: 36415; 84112; 85014; 85018; 85025; 86592; 86850; 86900; 86901; 90710; A9270; J0290; J0702; J2590; J2795; J7120

== ENCOUNTER 2022-11-08 14:00 | Emergency (ER) | payer OTHER, SELFPAY ==
[2022-11-08 14:06] VITALS: BP 128/78; PULSE 81; RESP 20; TEMP 36.6; O2SAT 100
--- NOTE | 2022-11-08 14:24 | ED.NAVMDI ---
HPI - Nausea/Vomiting/Diarrhea General Chief complaint: Nausea/Vomiting/Diarrhea Stated complaint: flu symptoms History of Present Illness HPI Narrative: Pt is a 27 y/o female presents to with 72 hour hx of body aches and malaise, followed by diarrhea yesterday. She has continued feel achy. She denies vomiting but feels nauseated. She has not had fevers, she denies known sick contacts or recent travel and she has not received abx therapy in the past 30 days. She is not . She is drinking fluids and resting. She denies any additional associated symptoms or modifying factors. Related Data Home Medications Medication Instructions Recorded Confirmed citalopram 10 mg tablet 10 mg PO DIRECTED 11/08/22 11/08/22 Allergies Allergy/AdvReac Type Severity Reaction Status Date / Time No Known Allergies Allergy Verified 11/08/22 14:13 Review of Systems Gastrointestinal: Comments: refer to [facility] Past Medical History Medical History Anxiety Morbid obesity and not yet delivered Prolonged rupture of membranes Social History Social History Years smoked: 8 Smoking status: Current every day smoker Tobacco type: e-cigarettes/vaping Second hand tobacco smoke exposure: Yes Substance use: current Spiritual care concerns: No Exam Const: General: cooperative, healthy appearing, comfortable, no acute distress, well developed, alert, awake and Physically active Orientation/consciousness: oriented to person Limitations: no limitations HENMT: Head: normal to inspection Ears: hearing grossly normal bilaterally, external ears normal and TM's normal bilaterally Mouth: Yes Normal oral and palatal mucosa present, Yes lip normal, Yes tongue normal, Yes Normal salivary glands and ducts present, Yes oropharynx normal and Yes moist mucous membranes Throat: posterior oropharynx normal Eyes: General: appearance normal, both eyes and all related structures Eyelids: eyelids normal Conjunctivae: conjunctivae normal Sclera: sclerae normal Neck: Neck: normal visual inspection, full ROM, no lymphadenopathy, no meningeal signs, trachea midline and supple Lymphatic: no lymphadenopathy noted Resp: Effort & Inspection: normal respiratory effort Auscultation: clear to auscultation bilaterally Cardio: Palpation: normal PMI Rate: regular rate Rhythm: regular rhythm Heart sounds: S1 normal heart sound present and S2 normal heart sound present GI: GI Palp: Yes Other GI palpation findings present (non TTP, no hernia, no HSM) Skin: General skin exam: normal color Neuro: General: oriented to person, oriented to place, oriented to time, patient oriented x3 and gait normal Cranial nerves: Yes CN's II-XII intact bilaterally Extrem: General: normal to inspection Course Course Emergency Course: pt is not tachycardic and she has no abdominal tenderness. Her symptoms are consistent with viral syndrome/gastroenteritis. She is advised of plan to discharge home with Zofran, pushing fluids, OTC probiotic, FU with PCP if symptoms are not improving, ER if abdominal pain or fevers arise. Level of Care: Express Care Visit ([id number]) Vital Signs Vital signs: Vital Signs Temperature 36.6 C 11/08/22 14:06 Pulse Rate 81 11/08/22 14:06 Respiratory Rate 20 11/08/22 14:06 Blood Pressure 128/78 11/08/22 14:06 Pulse Oximetry 100 11/08/22 14:06 Oxygen Delivery Room Air 11/08/22 14:06 Temperature 36.6 C 11/08/22 14:06 Pulse Rate 81 11/08/22 14:06 Respiratory Rate 20 11/08/22 14:06 Blood Pressure 128/78 11/08/22 14:06 Pulse Oximetry 100 11/08/22 14:06 Oxygen Delivery Room Air 11/08/22 14:06 MDM - Nausea/Vomiting/Diarrhea MDM Narrative Medical decision making narrative: zofran, OTC probiotic, FU with PCP, ER if condition worsens Differential Diagnosis Differential diag
== END 2022-11-08 14:44 | disposition home or self-care (01) ==
PROVIDERS: Emergency Provider Nurse Practitioner Family; PCP Nurse Practitioner Family
DX: K52.9 Noninfective gastroenteritis and colitis, unspecified (principal); F41.9 Anxiety disorder, unspecified; E66.01 Morbid (severe) obesity due to excess calories; Z68.35 Body mass index [BMI] 35.0-35.9, adult; F17.290 Nicotine dependence, other tobacco product, uncomplicated
CPT/HCPCS: 99213; G0463

== ENCOUNTER 2024-10-14 15:37 | Outpatient (CLI) | payer OTHER, SELFPAY ==
[2024-10-14 19:31] LABS: Hematocrit 41.7 % (37.0-47.0); Hemoglobin 13.7 g/dL (12.0-15.0); Mean Corpuscular HGB Conc 32.9 g/dl (32-36); Mean Corpuscular Hemoglobin 31.7 pg (26-34); Mean Corpuscular Volume 96.5 fl (80-100); Mean Platelet Volume 9.9 fl (7.4-10.4); Platelet Count Result 323 k/mm3 (150-375); Red Blood Count 4.32 M/mm3 (4.2-5.4); Red Cell Distribution Width 12.4 % (11.5-14.5); White Blood Count 9.3 K/mm3 (4.5-10.0)
[2024-10-14 20:19] LABS: Alanine Aminotransferase 47 U/L (6-35); Albumin Level 4.7 g/dL (3.5-5.1); Alkaline Phosphatase 62 U/L (38-126); Anion Gap 8 mmol/L (4-12); Aspartate Amino Transferase 63 U/L (14-36); Bilirubin,Total 0.4 mg/dL (0.2-1.3); Blood Urea Nitrogen 15 mg/dL (7-17); Calcium 9.4 mg/dL (8.4-10.2); Carbon Dioxide 27 mmol/L (22-30); Chloride 102 mmol/L (98-107); Cholesterol 217 mg/dL (0-200); Estimated Glomerular Filt Rate > 60; Glucose 91 mg/dL (65-110); HDL Direct 65 mg/dL; Potassium 4.3 mmol/L (3.4-5.0); Sodium 137 mmol/L (137-145); Triglycerides 102 mg/dL (<150)
[2024-10-14 20:30] LABS: LDL Cholesterol Direct 100 mg/dL
[2024-10-14 20:31] LABS: Free T4 Free Thyroxine 0.88 ng/dL (0.78-2.19)
== END 2024-10-14 15:38 | disposition home or self-care (01) ==
LOC: ANHBWCLAB 15:37
PROVIDERS: PCP Nurse Practitioner Adult Health; Visit Provider Nurse Practitioner Adult Health
DX: Z00.00 Encounter for general adult medical examination without abnormal findings (principal)
CPT/HCPCS: 36415; 80053; 80061; 84439; 84443; 85027